=== PATIENT | female | born 1985 | race American Indian/Alaskan Native ===

== ENCOUNTER 2020-01-13 16:52 | Emergency (ER) | payer OTHER, SELFPAY ==
[2020-01-13 17:26] VITALS: BP 164/70; PULSE 81; RESP 18; TEMP 36.7; O2SAT 98
--- NOTE | 2020-01-13 17:41 | ED.ALLEREA ---
HPI - Allergic Reaction General Chief complaint: Allergic Reaction Stated complaint: stung over left eye by a bee, multiple stings Time Seen by Provider: 01/13/20 17:16 Source: patient Mode of arrival: Family Vehicle Limitations: no limitations History of Present Illness HPI narrative: CC: Yellow Jacket Bee sting to left forehead HPI: The patient is a 34-year-old female who states that she was stung by to yellow jackets at approximately 3:15 p.m. today in her left forehead above her eyebrow. She states that she called the nurse line and was told to take loratadine 10 mg and to come into the emergency department to be evaluated for an allergic reaction. The patient states that she developed pain and discomfort in the area of the bee tank and that it started to swell. She also developed a transient period of vertigo. Developed burning in her neck. She states that her face just aches and hurts in the area of the bee sting. She has had no trouble breathing. She denies diabetes mellitus congenital heart disease heart murmur or asthma. She smokes cigarettes drinks alcohol but does not use marijuana. Related Data Previous Rx's Medication Instructions Recorded diphenhydramine HCl [Benadryl 25 mg PO Q6H PRN #20 tab 01/13/20 Allergy] ketorolac 10 mg PO Q6H PRN 5 Days #20 tab 01/13/20 prednisone 40 mg PO DAILY #6 tab 01/13/20 Allergies Allergy/AdvReac Type Severity Reaction Status Date / Time No Known Drug Allergies Allergy Verified 01/13/20 17:33 Review of Systems Review of Systems Narrative: REVIEW OF SYSTEMS: CONSTITUTIONAL: She denies fever chills or sweats. NEUROLOGICAL: She has had no headache just facial pain in the area of being stung. CARDIO-PULMONARY: He has had no chest pain racing of her heart shortness of breath wheezing or cough. GASTROINTESTINAL: He has had no abdominal pain nausea vomiting diarrhea. GENITAL URINARY: No urinary symptoms Patient History Social History Smoking Status: Current every day smoker Smoking Status: Current every day smoker tobacco type: cigarettes alcohol intake frequency: 0-2 drinks per day Substance Use Type: does not use Exam Narrative Exam Narrative: PHYSICAL EXAM: CONSTITUTIONAL: Awake, Alert, Oriented, Coherent, Cooperative acutely anxious but is not toxic or ill-appearing HEAD: AT/NC, her face is mildly swollen over her left eyebrow EENT: PERRL, FROM of eyes, no discharge, no nystagmus, no conjunctivitis. The left upper eyelid is swollen as is her forehead over the left eyebrow. EARS:No drainage from the ears, Tympanic membranes intact bilaterally, clear EAC NOSE:No epistaxis or nasal drainage MOUTH:Oral mucosa is moist and pink, posterior pharynx is without erythema or exudate. NECK: Supple, no obvious JVD, Trachea is midline without stridor, no palpable LN. SPINE: Palpationof the thoracic, Lumbar or Sacral spine reveals no gross deformity or tenderness. No CVA tenderness. The patient has mild tenderness to palpation diffusely over the paraspinal muscles THORAX: No deformity, retractions, chest wall tenderness. LUNGS: Clear, symmetrical breath sounds without respiratory distress. HEART: Normal heart tones, regular rhythm and rate without murmur. ABDOMEN: Soft, non-tender, without guarding, rebound, rigidity or palpable mass. SKIN: No rash, bruising, petechiae or purpura. NEURO: Awake, alert, oriented, conversive, cranial nerves II-XII are symmetrical , moves all 4 extremities and is ambulatory. MENTAL HEALTH: Does not appear anxious or depressed. Initial Vital Signs Initial Vital Signs: Vital Signs Temperature 98.1 F 01/13/20 17:26 Pulse Rate 81 01/13/20 17:26 Respiratory Rate 18 01/13/20 17:26 Blood Pressure 164/70 H 01/13/20 17:26 Pulse Oximetry 98 01/13/20 17:26 Course Orders Ordered: Discontinued Medications Diphenhydramine HCl (Benadryl) 25 mg PO NOW ONE Stop: 01/13/20 17:27 Last Admin: 01/13/20 17:44 Dose: 25 mg Documented by: FLOR Ketorolac Tromethamine (Toradol) 30 mg IM NOW ONE Stop: 01/13/20 17:27 Last Admin: 01/13/20 17:44 Dose: 30 mg Documented by: FLOR Prednisone (Deltasone) 60 mg PO NOW ONE Stop: 01/13/20 17:27 Last Admin: 01/13/20 17:43 Dose: 60 mg Documented by: FLOR Vital Signs Vital signs: Vital Signs - 8 hr 01/13/20 17:26 Temperature 98.1 F Pulse Rate 81 Respiratory Rate 18 Blood Pressure 164/70 H Pulse Oximetry 98 Discharge Plan Departure Patient Disposition: Home Clinical Impression: Left facial swelling, Facial pain, acute Bee sting reaction Qualifiers: Encounter type: initial encounter Injury intent: accidental or unintentional Qualified Code(s): T63.441A - Toxic effect of venom of bees, accidental (unintentional), initial encounter Discharge Date/Time: 01/13/20 18:34 Instructions: DI for Insect Bites and Stings Activity Restrictions/Additional Instructions: 1. Bee stings contain a venom that can cause allergic reactions as well as inflammatory reactions which include itching, burning, swelling, and pain. 2. For the pain and discomfort take Toradol tablets 10 mg every 6 hours as needed for pain and discomfort. You can start the Toradol 6 hours from the dosage she received in the emergency department. 3. Take prednisone 20 mg tabs, 2 tabs daily for the inflammatory response for the next 3 days. 4. For the itching burning and swelling take Benadryl 25 mg as needed every 6 hours. The Benadryl will call should becomes sleepy and tired. 5. To help with the swelling you can apply cold compresses for 20-30 minutes or as long as tolerated every 2-3 hours for the next 24 hours. 6. If you develop troubles breathing such as wheezing, she increased shortness of breath you need to return to the emergency department to be re-evaluated. Prescriptions: New ketorolac 10 mg tablet 10 mg PO Q6H PRN (Reason: pain) 5 Days Qty: 20 RF: 0 prednisone 20 mg tablet 40 mg PO DAILY Qty: 6 RF: 0 diphenhydramine HCl [Benadryl Allergy] 25 mg tablet 25 mg PO Q6H PRN (Reason: itching, burning, swelling) Qty: 20 RF: 0
[2020-01-13] MEDS: predniSONE 20 MG TABLET 60 MG PO (17:43)
[2020-01-13] MEDS: diphenhydrAMINE 25 MG TABLET PO (17:44)
[2020-01-13] MEDS: KETOROLAC 60 MG/2 ML VIAL 30 MG IM (17:44)
--- NOTE | 2020-01-13 18:23 | PC.NURSE ---
Pt reports being stung by bee x 2 to L eyebrow, mild swelling with redness noted, no hives noted throughout. Pt denies any SOB/CP, no tongue/lip swelling noted, pt in NAD.
== END 2020-01-13 18:34 | disposition home or self-care (01) ==
PROVIDERS: Emergency Provider Emergency Medicine
DX: T63.441A Toxic effect of venom of bees, accidental (unintentional), initial encounter (principal); R22.0 Localized swelling, mass and lump, head; R51 Headache
CPT/HCPCS: 96372; 99283; J1885